=== PATIENT | female | born 1995 | race Caucasian/White ===

== ENCOUNTER 2017-03-26 11:41 | Emergency (ER) | payer OTHER ==
[~2017-03-26] VITALS: Ht 157.5 cm; Wt 57.2 kg
[2017-03-26 11:47] VITALS: BP 116/70
[2017-03-26] MEDS ORDERED: HYDROCODONE/APAP 5/325MG 1 EACH TABLET ONE (12:52)
[2017-03-26] MEDS ORDERED: IBUPROFEN 600 MG TABLET PO ONE ×2 (12:52→13:00)
[2017-03-26] MEDS ORDERED: ONDANSETRON 4 MG TAB.RAPDIS ONE (12:53)
[2017-03-26] MEDS ORDERED: HYDROCODONE/APAP 10/325MG 1 EA TABLET ONE (12:55)
[2017-03-26] MEDS ORDERED: ONDANSETRON 4 MG TAB.RAPDIS SL ONE (13:00)
[2017-03-26] MEDS ORDERED: HYDROCODONE/APAP 10/325MG 1 EA TABLET PO ONE (13:00)
== END 2017-03-26 14:06 | disposition home or self-care (01) ==
LOC: ER 11:49
DX: M75.91 Shoulder lesion, unspecified, right shoulder (principal)
CPT/HCPCS: 73030; 99284; A4606; Q0162; Z7610